=== PATIENT | female | born 1995 | race Two or more races ===

== ENCOUNTER 2024-09-02 14:52 | Emergency (ER) | payer MEDICAID ==
[~2024-09-02] VITALS: Ht 170.2 cm; Wt 68.2 kg
[2024-09-02 14:59] VITALS: BP 113/65; PULSE 63; RESP 18; TEMP 98.2; O2SAT 100
[2024-09-02] MEDS ORDERED: IBUP-1554 PO (17:03)
[2024-09-02] MEDS ORDERED: ACET-66 PO (17:03)
[2024-09-02] MEDS: ACETAMINOPHEN 500 MG TABLET PO ONE (17:26)
[2024-09-02] MEDS: KETOROLAC TROMETHAMINE 60 MG/2 ML VIAL IM ONE (17:26)
== END 2024-09-02 17:35 | disposition home or self-care (01) ==
LOC: EMS 14:52
DX: S83.92XA Sprain of unspecified site of left knee, initial encounter (principal); X58.XXXA Exposure to other specified factors, initial encounter; Y93.89 Activity, other specified; Y92.89 Other specified places as the place of occurrence of the external cause; Y99.8 Other external cause status
CPT/HCPCS: 99283; 73562; 96372; J1885